=== PATIENT | male | born 1970 | race Caucasian/White ===

== ENCOUNTER 2019-07-31 09:29 | Day surgery (SDC) | payer OTHER ==
[~2019-07-31] VITALS: Ht 185.4 cm; Wt 107.2 kg
[~2019-07-31 09:29] MED LIST: ALBU90OI INH; ALPR.25 PO; ATOR10 PO; BELPTAB PO; BENTYL10 MG PO; BETA.05TCA; BETA.05TCA TOP; Bentyl10 MG PO; COSENTYX P150 MG/11 SC; Coumadin7.5 MG PO; DIAZ5 PO; DOC250 PO; ESCI10 PO; ESOM20 PO; ESOMEPRAZOLE MA40 MG PO; ETAN50I SC; Enulose10 GM/15 M PO; Flovent 110 MCG12 GM INH; HYDACE5; HYDR1TAB94 PO; Hydrocodone-Ap1 EA23 PO; LISI5 PO; MELO7.5; MOMENI; NEBI10 PO; NORT25 PO; Nexium40 MG PO; Nortriptyline H50 MG PO; OXYACE5T PO; Omega-31000 MG PO; PROM25 PO; PSEU30 PO; Prinivil10 MG PO; Promethazine12.5 M1 PO; REMICADE PO; RXLORA1 PO; SUCR1 PO; WARF10 PO; WARF5 PO; WARF6 PO; WARF7.5 PO; XARELTO20 MG PO; ZINC15G
[2019-07-31] MEDS ORDERED: SKYRIZI (10:03)
--- NOTE | 2019-07-31 10:26 | NUR ---
07/31/[address] AWARE OF DARREN, OK TO PROCEED WITH NURSE SEDATION.
--- NOTE | 2019-07-31 11:50 | NUR ---
07/31/[address] AT BEDSIDE TO DISCUSS DARREN MANAGEMENT WITH FAMILY AT BEDSIDE
--- NOTE | 2019-07-31 17:01 | NUR ---
07/31/19 1701 Sharon Gordon PT. WITH DARREN. PT. WAS BEING SEDATED & THEN NEEDED EXTRA NURSE FOR JAW THRUST. PT. THEN WOULD MOVE. PER DR. DURAN SEE IF ANESTHESIA WAS AVAILABLE TO HELP WITH CASE. DR. CARTER IN ROOM. PT. GIVEN EXTRA MEDS, SEE ANESTHESIA RECORD. ALSO UPPER ENDOSCOPY WAS CHANGED TO A PUSH ENTEROSCOPY.
== END 2019-07-31 11:44 | disposition home or self-care (01) ==
LOC: ORSCSDS 09:29
PROVIDERS: Internal Medicine Gastroenterology
PROC: 0DB98ZX Excision of Duodenum, Via Natural or Artificial Opening Endoscopic, Diagnostic (ICD-10-PCS; principal; 2019-07-31 10:45)
PROC: 0DB68ZX Excision of Stomach, Via Natural or Artificial Opening Endoscopic, Diagnostic (ICD-10-PCS; principal; 2019-07-31 10:45)
PROC: 0DB88ZX Excision of Small Intestine, Via Natural or Artificial Opening Endoscopic, Diagnostic (ICD-10-PCS; principal; 2019-07-31 10:45)
DX: D13.2 Benign neoplasm of duodenum (principal); K31.7 Polyp of stomach and duodenum; R10.13 Epigastric pain; I10 Essential (primary) hypertension; K21.9 Gastro-esophageal reflux disease without esophagitis; G47.33 Obstructive sleep apnea (adult) (pediatric); E66.9 Obesity, unspecified; Z68.31 Body mass index [BMI] 31.0-31.9, adult; F41.8 Other specified anxiety disorders; Z79.01 Long term (current) use of anticoagulants; Z79.899 Other long term (current) drug therapy
CPT/HCPCS: 88305; 88342; J2704; J7120

== ENCOUNTER → 2019-10-09 | Outpatient (CLI) | payer OTHER ==
[~2019-10-09] MED LIST changes: +SKYRIZI
== END | disposition home or self-care (01) ==
LOC: LAB SHORT 13:39 → PLD 13:39
DX: D10.39 Benign neoplasm of other parts of mouth (principal); D37.05 Neoplasm of uncertain behavior of pharynx
CPT/HCPCS: 88305

== ENCOUNTER 2019-11-05 10:27 | Day surgery (SDC) | payer OTHER ==
[~2019-11-05] VITALS: Ht 185.4 cm; Wt 108.6 kg
--- NOTE | 2019-11-05 14:54 | NUR ---
11/05/19 1453 Leslie Yusuf AFTER PT GOT DRESSED, PT C/O BILAT CRAMPING IN BOTH CALVES. PT STATES CRAMPING IS MILD. DR HAMLIN AWARE AND AT BEDSIDE TO TALK TO PT AT 1439. PT INSTRUCTED TO GOT TO ER IF PAIN WORSENS OR DOES NOT RESOLVE. PT INSTRUCTED TO REPLENISH FLUIDS/ELECTROLYTES, MASSAGE CALVES, AND STRETCH CALVES TO HELP ALLEVIATE PAIN.
== END 2019-11-05 14:42 | disposition home or self-care (01) ==
LOC: ORSCSDS 10:27
PROVIDERS: Otolaryngology
PROC: 09TL7ZZ Resection of Nasal Turbinate, Via Natural or Artificial Opening (ICD-10-PCS; principal; 2019-11-05 11:45)
PROC: 09BM3ZZ Excision of Nasal Septum, Percutaneous Approach (ICD-10-PCS; principal; 2019-11-05 11:45)
DX: J34.2 Deviated nasal septum (principal); J34.3 Hypertrophy of nasal turbinates; I10 Essential (primary) hypertension; G47.33 Obstructive sleep apnea (adult) (pediatric); Z79.899 Other long term (current) drug therapy
CPT/HCPCS: 93005; 93010; J0171; J0330; J1100; J2250; J2405; J3010; J7120